=== PATIENT | male | born 1940 | race Caucasian/White ===

== ENCOUNTER → 2017-06-06 | Outpatient (CLI) | payer MEDICARE ==
[~2017-06-06] MED LIST: ACID REFLUX MED; ALLO-1 PO; AMOX-355 PO; BENA20TA62 PO; CEP500 PO; CLO5 PO; ENAL20TA99 PO; ESCI20TA8 PO; ESOM40CA42 PO; GLUC750T10 PO; IOPAMIDOL 76% 75 ML INFUS BTL 75 ML ONE; KET10 PO; LEV75 PO; LOR5 PO; LYRICA; NS 0.9% 50 ML VIAL 50 ML ONE; OMEP-218 PO; OXYGEN INH; PER PO; TAMS0.4C76 PO; TEST100V2 IM; TUM500 PO
--- NOTE | 2017-06-06 15:31 | RADIOLOGY IMAGING REPORT ---
FACILITY: [facility] [place] PATIENT NAME: Tito Ryder : 1940 MR: [id number] V: [id number] EXAM DATE: ORDERING PHYSICIAN: RENETTA MCGOVERN TECHNOLOGIST: Location: [facility] Patient: Tito Ryder : 1940 Visit/Account:[id number] Date of Sevice: 06/06/2017 ABDOMEN/PELVIS W/WO CONTRAST HISTORY: Pain with hematuria TECHNIQUE: Axial images acquired through the abdomen/pelvis both with and without IV contrast.. Katheryn nal and sagittal reformatting also performed. Dose Lowering Technique One of the following dose optimization techniques was utilized in the performance of this exam: Autom ated exposure control; adjustment of the mA and/or kV according to the patient's size; or use of an i terative reconstruction technique. Specific details can be referenced in the facility's radiology C T exam operational policy. CONTRAST: 75 mL Isovue-370 COMPARISON: None. FINDINGS: Visualized lung bases: Negative. Hepatobiliary: There are postsurgical changes from a cholecystectomy with prominence of the common b ile duct measuring up to 1.2 cm Spleen: Negative. Adrenals: Negative. Pancreas: Negative. Kidneys ureters and bladder: There is mild perinephric stranding bilaterally. There is no evidence o f hydronephrosis or hydroureter. The urinary bladder wall is moderately thickened. Genitalia: Prostate gland is markedly enlarged, extremely heterogeneous and impinges upon the floor the urinary bladder. Seminal vesicles are also very prominent GI: There is focal thickening in the mid ascending colon which is best seen on axial image 73 and co danielle image 29 Vessels/spaces/nodes: There are infiltrative changes seen throughout the central mesenteric fat whic h could be related to mesenteric edema. No bowel wall thickening however is identified and the mesen teric vessels appear well opacified with contrast. There are several enlarged mesenteric lymph nodes . A containers sales representative lymph node measures 1.5 x 1.2 x 1.7 cm Bones/soft tissues: Mild to moderate spondylotic changes of the thoracolumbar spine Additional findings: None pertinent. IMPRESSION: There is mild perinephric stranding bilaterally however no evidence of hydronephrosis or hydroureter. The bladder wall is moderately thickened which may be related to chronic bladder outlet obstruction a s the prostate gland is markedly enlarged, extremely heterogeneous and impinges upon the floor the ur inary bladder. Seminal vesicles are also prominent. There is focal thickening of the mid descending colon as described above. Although this could repres ent an area of spasm and annular lesion cannot be totally ruled out. There are infiltrative changes seen throughout the central mesenteric fat which could be related to m esenteric edema. There is however no bowel wall thickening in the mesenteric vessels appear well opa cified with contrast. There are however several enlarged mesenteric lymph nodes as described above Additional incidental findings as described Report Dictated By: Noy Castro MD at 06/06/2017 3:14 PM Report E-Signed By: Noy Castro MD at 06/06/2017 3:27 PM EVAN:AMILITOVWily
== END ==
LOC: CT 01:30
PROVIDERS: ATTEND Family Medicine
DX: N40.0 Benign prostatic hyperplasia without lower urinary tract symptoms (principal); Z90.49 Acquired absence of other specified parts of digestive tract
CPT/HCPCS: 36415; 74178; 82565; 84520; J7050; Q9967

== ENCOUNTER → 2017-06-12 | Outpatient (CLI) | payer MEDICARE ==
[~2017-06-12] MED LIST changes: -IOPAMIDOL 76% 75 ML INFUS BTL 75 ML ONE; -NS 0.9% 50 ML VIAL 50 ML ONE
== END ==
LOC: LAB 10:44
PROVIDERS: ATTEND Family Medicine
DX: R31.9 Hematuria, unspecified (principal)
CPT/HCPCS: 81001; 87088; 88108

== ENCOUNTER → 2017-08-11 | Outpatient (REF) | payer MEDICARE | LOC: ZZSENDIN 11:00 | PROVIDERS: ATTEND Urology | DX: R31.0 Gross hematuria (principal) | CPT/HCPCS: 88108 ==

== ENCOUNTER → 2017-08-25 | Outpatient (CLI) | payer MEDICARE ==
--- NOTE | 2017-08-25 16:22 | RADIOLOGY IMAGING REPORT ---
FACILITY: [facility] PATIENT NAME: Tito Ryder : 1940 MR: [id number] V: [id number] EXAM DATE: ORDERING PHYSICIAN: RENETTA MCGOVERN TECHNOLOGIST: Location: [facility] [place] Patient: Tito Ryder : 1940 Visit/Account:[id number] Date of Sevice: 08/25/2017 Ultrasound of the Abdominal Wall. HISTORY: Concern for right abdominal wall mass or hernia. COMPARISON: None. FINDINGS: The right upper quadrant anterior abdominal wall was assessed with a high frequency linear transducer . No abdominal wall mass, fluid collection, or edema is seen. No abdominal wall defect is observed at rest or during Valsalva maneuver. IMPRESSION: Negative study for right upper quadrant abdominal wall mass or hernia. Report Dictated By: Taylor Morfin MD at 08/25/2017 4:15 PM Report E-Signed By: Taylor Morfin MD at 08/25/2017 4:18 PM WSN:[email or web address]
== END ==
LOC: US 10:36
PROVIDERS: ATTEND Family Medicine
DX: R19.00 Intra-abdominal and pelvic swelling, mass and lump, unspecified site (principal)
CPT/HCPCS: 76705

== ENCOUNTER 2017-11-20 10:53 | Outpatient (RCR) | payer MEDICARE ==
[2017-09-01 13:55] VITALS: BP 149/80
[2017-09-01 15:00] LABS: PLATELET COUNT, AUTOMATED 173 K/uL (150-450)
--- NOTE | 2017-09-02 16:27 | ONCOLOGY CONSULTATION ---
EVENT DATE: September 01, 2017 REFERRING PHYSICIAN Rebeca Patel MD REASON FOR CONSULTATION Evaluation and management of erythrocytosis. HISTORY OF PRESENT ILLNESS Patient is a 77-year-old male who was on androgen supplementation for over 10 years for hypogonadism. Patient donates his blood nearly every three months. He had blood work done on August 03, 2017, which showed a white count of 6000, hemoglobin 19.8, hematocrit 58.5 and platelet count 175,000. Patient has some night sweats occasionally, but denies any other constitutional symptoms. PAST MEDICAL HISTORY 1. Depression. 2. Sinusitis. 3. Hypertension. 4. Hypothyroidism. 5. Hypogonadism. 6. Gout. PAST SURGICAL HISTORY 1. Cholecystectomy. 2. Sinus surgery. 3. Nerve release of the forearm surgery. FAMILY HISTORY Mother had breast cancer. Father had non-Hodgkin's lymphoma. Sister had non- Hodgkin's lymphoma. SOCIAL HISTORY Patient is with two daughters. He is a retired medical office administrator. He drinks on a daily basis wine, beer, hard liquor sometimes. Denies any abuse of tobacco or illicit drugs. CURRENT MEDICATIONS 1. Zantac 150 mg daily. 2. Aleve 220 mg at bedtime. 3. Losartan/hydrochlorothiazide 50/12.5 mg one tablet daily. 4. Colestipol hydrochloride 1 g daily. 5. Escitalopram oxalate 20 mg daily. 6. Synthroid 137 mcg daily. 7. Allopurinol 300 mg daily. 8. Testosterone 100 m/mL vial intramuscularly every two weeks. 9. Lotensin 20 mg daily. ALLERGIES No known drug allergies. REVIEW OF SYSTEMS CONSTITUTIONAL: No appetite or weight change. No fever, chills. He has occasional sweating. No recent infection. HEENT: Ears: No tinnitus or hearing problem. Nose: No nasal discharge or epistaxis. Throat: No sore throat or mouth ulcers. Eyes: No diplopia or visual changes. RESPIRATORY: No shortness of breath. No cough, expectoration or hemoptysis. CARDIOVASCULAR: No chest pain, orthopnea, or paroxysmal nocturnal dyspnea (PND) . No edema. No palpitations. GASTROINTESTINAL: Patient had occasional diarrhea after his gallbladder surgery. No vomiting. No constipation. No heartburn or swallowing difficulties. No abdominal pain. No jaundice. No hematemesis, melena or rectal bleeding. GENITOURINARY: No hematuria or dysuria. MUSCULOSKELETAL: He has arthritis of the spine and fingers. NEUROLOGICAL: No tingling or numbness in the hands or feet. No headaches or convulsions. HEMATOLOGIC/LYMPHATIC: No bleeding. He bruises easily. No weakness or fatigue. No enlarged lymph nodes. SKIN: No skin rash or lumps. PSYCHIATRIC: No anxiety or depression. PHYSICAL EXAMINATION GENERAL: Looks stable. Well-developed, well-nourished, and in no acute distress. VITAL SIGNS: Blood pressure 149/80, pulse 72 per minute, respirations 16 per minute, temperature 97.5, pulse ox 96% on room air. HEENT: Head: Atraumatic. No sinus tenderness to palpation. Eyes: No icterus or conjunctivitis. Mouth and throat: No oral thrush or mucositis. NECK: Supple. No cervical or supraclavicular lymphadenopathy. LUNGS: Clear to auscultation and percussion bilaterally. HEART: Regular rate and rhythm. No gallops, murmurs, clicks or rubs. ABDOMEN: Soft and lax. No tenderness. No hepatosplenomegaly. No masses. EXTREMITIES: No cyanosis, clubbing or edema. LYMPHATICS: No peripheral lymphadenopathy. NEUROLOGICAL: Conscious, alert and oriented times three. No focal motor or sensory deficits. PSYCHIATRIC: Mood and affect appear normal. SKIN: No skin rash, bruise or purpuric eruption. ASSESSMENT 1. Erythrocytosis, most probably secondary initially due to his testosterone supplementation, but primary polycythemia vera cannot be ruled out, and for this reason I am planning to check his CBC today. I am planning also to check his JAK2 mutation analysis which will be positive in 95% of cases of polycythemia vera, but negative in secondary causes. I will check also his erythropoietin level which will be low in polycythemia vera and normal and high in secondary causes of erythrocytosis. My target for phlebotomy will be different if it is due to polycythemia vera. The target will be hematocrit above 45%, while if it is secondary cause for erythrocytosis, then the target for phlebotomy, if the hematocrit above 55%. I am planning to see the patient in a week from now to discuss the results and for further management. 2. Hypogonadism on testosterone supplement. 3. Hypothyroidism on Synthroid. 4. Hypertension on treatment. 5. Gout on treatment. 6. Depression on treatment. PLAN 1. CBC. 2. JAK2 mutation analysis. 3. Erythropoietin level. 4. Patient to return in one week for further evaluation and management. 5. Consider phlebotomy if hematocrit above 45% in polycythemia vera, or above 55% in secondary causes of erythrocytosis. 6. Patient to contact us for any new concerns or complaints. MTDD
[2017-09-15 09:02] VITALS: BP 142/84
[2017-09-15 09:55] VITALS: BP 136/93
--- NOTE | 2017-09-15 17:30 | ONCOLOGY FOLLOW UP NOTE ---
EVENT DATE: September 15, 2017 DIAGNOSES 1. Secondary erythrocytosis. 2. Hypogonadism on testosterone supplement. 3. Hypothyroidism. 4. Hypertension. 5. Gout. 6. Depression. CHIEF COMPLAINT Patient is here today for followup of his erythrocytosis. HEMATOLOGY HISTORY Patient is a 77-year-old male who was on androgen supplementation for over 10 years for hypogonadism. Patient donates his blood nearly every three months. He had blood work done August 03, 2017 which showed a white count of 6000, hemoglobin 19.8, hematocrit 58.5 and the platelet count 175,000. He has some night sweating, but denies any other constitutional symptoms. Repeat CBC on September 01, 2017 showed white count 7.9, hemoglobin 20.3, hematocrit 58.8, platelets 173,000. Erythropoietin level was normal at 15, while JAK2 mutation for V617F mutation and Exon 12 mutation both came back negative, suggesting the diagnosis of secondary erythrocytosis as the underlying cause, which is most probably due to his testosterone supplementation. HISTORY OF PRESENT ILLNESS Patient is here today for followup of his erythrocytosis. He is totally asymptomatic currently. His last phlebotomy was about two months ago. PAST MEDICAL HISTORY 1. Depression. 2. Sinusitis. 3. Hypertension. 4. Hypothyroidism. 5. Hypogonadism. 6. Gout. PAST SURGICAL HISTORY 1. Cholecystectomy. 2. Sinus surgery. 3. Nerve release of the forearm surgery. FAMILY HISTORY Mother had breast cancer. Father had non-Hodgkin's lymphoma. Sister had non- Hodgkin's lymphoma. SOCIAL HISTORY Patient is with two daughters. He is a retired medical logistics specialist. He drinks on a daily basis wine, beer, hard liquor sometimes. Denies any abuse of tobacco or illicit drugs. CURRENT MEDICATIONS 1. Zantac 150 mg daily. 2. Aleve 220 mg at bedtime. 3. Losartan/hydrochlorothiazide 50/12.5 mg one tablet daily. 4. Colestipol hydrochloride 1 g daily. 5. Escitalopram oxalate 20 mg daily. 6. Synthroid 137 mcg daily. 7. Allopurinol 300 mg daily. 8. Testosterone 100 m/mL vial intramuscularly every two weeks. 9. Lotensin 20 mg daily. ALLERGIES No known drug allergies. REVIEW OF SYSTEMS CONSTITUTIONAL: No appetite or weight change. No fever, chills. He has occasional sweating. No recent infection. HEENT: Ears: No tinnitus or hearing problem. Nose: No nasal discharge or epistaxis. Throat: No sore throat or mouth ulcers. Eyes: No diplopia or visual changes. RESPIRATORY: No shortness of breath. No cough, expectoration or hemoptysis. CARDIOVASCULAR: No chest pain, orthopnea, or paroxysmal nocturnal dyspnea (PND) . No edema. No palpitations. GASTROINTESTINAL: Patient had occasional diarrhea after his gallbladder surgery. No vomiting. No constipation. No heartburn or swallowing difficulties. No abdominal pain. No jaundice. No hematemesis, melena or rectal bleeding. GENITOURINARY: No hematuria or dysuria. MUSCULOSKELETAL: He has arthritis of the spine and fingers. NEUROLOGICAL: No tingling or numbness in the hands or feet. No headaches or convulsions. HEMATOLOGIC/LYMPHATIC: No bleeding. He bruises easily. No weakness or fatigue. No enlarged lymph nodes. SKIN: No skin rash or lumps. PSYCHIATRIC: No anxiety or depression. PHYSICAL EXAMINATION GENERAL: Looks stable. Well-developed, well-nourished, and in no acute distress. VITAL SIGNS: Blood pressure 142/84, pulse 76 per minute, respirations 16 per minute, temperature 97.6, pulse ox 94% on room air. HEENT: Head: Atraumatic. No sinus tenderness to palpation. Eyes: No icterus or conjunctivitis. Mouth and throat: No oral thrush or mucositis. NECK: Supple. No cervical or supraclavicular lymphadenopathy. LUNGS: Clear to auscultation and percussion bilaterally. HEART: Regular rate and rhythm. No gallops, murmurs, clicks or rubs. ABDOMEN: Soft and lax. No tenderness. No hepatosplenomegaly. No masses. EXTREMITIES: No cyanosis, clubbing or edema. LYMPHATICS: No peripheral lymphadenopathy. NEUROLOGICAL: Conscious, alert and oriented times three. No focal motor or sensory deficits. PSYCHIATRIC: Mood and affect appear normal. SKIN: No skin rash, bruise or purpuric eruption. DIAGNOSTIC DATA CBC showed white count 7.9, hemoglobin 20.3, hematocrit 58.8, platelets 173, 000. JAK2 mutation for V617F mutation and Exon 12 mutation came back negative. Erythropoietin level is normal at 15. ASSESSMENT 1. Secondary erythrocytosis, given that the patient has negative JAK2 mutation for V617F mutation and Exon 12 mutation, and the erythropoietin level was normal at 15. Androgen supplementation most probably is the underlying cause for his erythrocytosis, and because the patient cannot get rid of it, I am planning to do phlebotomy whenever his hematocrit is above 55%. I am planning to check his CBC today and if the hematocrit is above 55% I am planning to proceed with phlebotomy today. I will check his CBC every month and I will see him in two months from now with another CBC, and whenever the hematocrit is above 55% we will do a phlebotomy. Patient is aware of that. 2. Hypogonadism on testosterone supplement. 3. Hypothyroidism on Synthroid. 4. Hypertension on treatment. 5. Gout on treatment. 6. Depression on treatment. PLAN 1. Check CBC today. 2. Phlebotomize 500 mL blood if the hematocrit is above 55%. 3. CBC to be checked monthly. 4. Patient to return in two months with CBC. 5. Patient to contact us for any new concerns or complaints. KATTY
[2017-10-20 09:07] VITALS: BP 121/78
[2017-10-20 09:18] LABS: PLATELET COUNT, AUTOMATED 164 K/uL (150-450)
[2017-10-20 09:47] VITALS: BP 120/79
[2017-11-13 13:05] VITALS: BP 131/74
[2017-11-13 13:27] LABS: PLATELET COUNT, AUTOMATED 178 K/uL (150-450)
[2017-11-16 10:01] VITALS: BP 126/74
--- NOTE | 2017-11-16 15:07 | ONCOLOGY FOLLOW UP NOTE ---
EVENT DATE: November 16, 2017 DIAGNOSES 1. Secondary erythrocytosis. 2. Hypogonadism on testosterone supplement. 3. Hypothyroidism. 4. Hypertension. 5. Gout. 6. Depression. CHIEF COMPLAINT Patient is here today for followup of his secondary erythrocytosis. HEMATOLOGY HISTORY Patient is a 77-year-old male who was on androgen supplementation for over 10 years for hypogonadism. Patient donates his blood nearly every three months. He had blood work done August 03, 2017 which showed a white count of 6000, hemoglobin 19.8, hematocrit 58.5 and the platelet count 175,000. He has some night sweating, but denies any other constitutional symptoms. Repeat CBC on September 01, 2017 showed white count 7.9, hemoglobin 20.3, hematocrit 58.8, platelets 173,000. Erythropoietin level was normal at 15, while JAK2 mutation for V617F mutation and Exon 12 mutation both came back negative, suggesting the diagnosis of secondary erythrocytosis as the underlying cause, which is most probably due to his testosterone supplementation. HISTORY OF PRESENT ILLNESS Patient is here today for followup of his secondary erythrocytosis. He is complaining of shortness of breath because of the smoke currently, but other than that he is really totally asymptomatic. PAST MEDICAL HISTORY 1. Depression. 2. Sinusitis. 3. Hypertension. 4. Hypothyroidism. 5. Hypogonadism. 6. Gout. PAST SURGICAL HISTORY 1. Cholecystectomy. 2. Sinus surgery. 3. Nerve release of the forearm surgery. FAMILY HISTORY Mother had breast cancer. Father had non-Hodgkin's lymphoma. Sister had non- Hodgkin's lymphoma. SOCIAL HISTORY Patient is with two daughters. He is a retired medical device sales representative. He drinks on a daily basis wine, beer, hard liquor sometimes. Denies any abuse of tobacco or illicit drugs. CURRENT MEDICATIONS 1. Zantac 150 mg daily. 2. Aleve 220 mg at bedtime. 3. Losartan/hydrochlorothiazide 50/12.5 mg one tablet daily. 4. Colestipol hydrochloride 1 g daily. 5. Escitalopram oxalate 20 mg daily. 6. Synthroid 137 mcg daily. 7. Allopurinol 300 mg daily. 8. Testosterone 100 m/mL vial intramuscularly every two weeks. 9. Lotensin 20 mg daily. ALLERGIES No known drug allergies. REVIEW OF SYSTEMS CONSTITUTIONAL: No appetite or weight change. No fever, chills. He has occasional sweating. No recent infection. HEENT: Ears: No tinnitus or hearing problem. Nose: No nasal discharge or epistaxis. Throat: No sore throat or mouth ulcers. Eyes: No diplopia or visual changes. RESPIRATORY: He has some shortness of breath because of smoke. No cough, expectoration or hemoptysis. CARDIOVASCULAR: No chest pain, orthopnea, or paroxysmal nocturnal dyspnea (PND) . No edema. No palpitations. GASTROINTESTINAL: Patient had occasional diarrhea after his gallbladder surgery. No vomiting. No constipation. No heartburn or swallowing difficulties. No abdominal pain. No jaundice. No hematemesis, melena or rectal bleeding. GENITOURINARY: No hematuria or dysuria. MUSCULOSKELETAL: He has arthritis of the spine and fingers. NEUROLOGICAL: No tingling or numbness in the hands or feet. No headaches or convulsions. HEMATOLOGIC/LYMPHATIC: No bleeding. He bruises easily. No weakness or fatigue. No enlarged lymph nodes. SKIN: No skin rash or lumps. PSYCHIATRIC: No anxiety or depression. PHYSICAL EXAMINATION GENERAL: Looks stable. Well-developed, well-nourished, and in no acute distress. VITAL SIGNS: Blood pressure 126/74, pulse 58 per minute, respirations 16 per minute, temperature 99.3, pulse ox 95% on room air. HEENT: Head: Atraumatic. No sinus tenderness to palpation. Eyes: No icterus or conjunctivitis. Mouth and throat: No oral thrush or mucositis. NECK: Supple. No cervical or supraclavicular lymphadenopathy. LUNGS: Clear to auscultation and percussion bilaterally. HEART: Regular rate and rhythm. No gallops, murmurs, clicks or rubs. ABDOMEN: Soft and lax. No tenderness. No hepatosplenomegaly. No masses. EXTREMITIES: No cyanosis, clubbing or edema. LYMPHATICS: No peripheral lymphadenopathy. NEUROLOGICAL: Conscious, alert and oriented times three. No focal motor or sensory deficits. PSYCHIATRIC: Mood and affect appear normal. SKIN: No skin rash, bruise or purpuric eruption. DIAGNOSTIC DATA CBC showed white count 8000, hemoglobin 18.9, hematocrit 55.5, platelets 178, 000. ASSESSMENT 1. Secondary erythrocytosis, given that the patient has negative JAK2 mutation for V617F mutation and Exon 12 mutation, and his erythropoietin level was normal at 15. Androgen supplementation most probably is the underlying cause for his erythrocytosis, and because the patient cannot get rid of it, I am planning to do phlebotomy whenever the hematocrit is above 55%. His current CBC shows hematocrit of 55.5% and I am planning to proceed with phlebotomy at this time. I will check his CBC every month and I will see him in three months with CBC at that time. 2. Hypogonadism on testosterone supplement. 3. Hypothyroidism on Synthroid. 4. Hypertension on treatment. 5. Gout on treatment. 6. Depression on treatment. PLAN 1. Phlebotomize 500 mL blood if the hematocrit is above 55%. 2. CBC to be checked monthly. 3. Patient to return in three months with CBC. 4. Patient to contact us for any new concerns or complaints. KATTY
[~2017-11-20 10:53] MED LIST changes: +COLE1TAB6 PO; +LOSA-51 PO; +NAPR220C12 PO; +RANI-366 PO
== END 2017-11-29 ==
LOC: SPU 10:53
PROVIDERS: ATTEND Internal Medicine Hematology
DX: D75.1 Secondary polycythemia (principal); E29.1 Testicular hypofunction; I10 Essential (primary) hypertension; E03.9 Hypothyroidism, unspecified; M10.9 Gout, unspecified; F32.9 Major depressive disorder, single episode, unspecified; R89.8 Other abnormal findings in specimens from other organs, systems and tissues
CPT/HCPCS: 36415; 81270; 82668; 85014; 85018; 85025; 85027; 99195; G0463; 81403; 99202; 99212

== ENCOUNTER 2018-02-02 09:50 | Outpatient (RCR) | payer MEDICARE ==
[2017-12-18 09:07] VITALS: BP 141/85
[2017-12-18 09:10] LABS: PLATELET COUNT, AUTOMATED 208 K/uL (150-450)
--- NOTE | 2017-12-18 09:14 | Oncology Progress Note ---
History of Present Illness Evaluation Evaluation Date: Dec 18, 2017 Evaluation Time: 10:10 Primary Care Provider Primary Care Provider: Amanda Jose DO Accompanied by Accompanied by: Self Last seen by : Ghulam 11/16/17 Chief Complaint Chief Complaint f/u management of Secondary Erythrocytosis Oncology History Oncology History HEMATOLOGY HISTORY Patient is a 77-year-old male who was on androgen supplementation for over 10 years for hypogonadism. Patient donates his blood nearly every three months. He had blood work done August 03, 2017 which showed a white count of 6000, hemoglobin 19.8, hematocrit 58.5 and the platelet count 175,000. He has some night sweating, but denies any other constitutional symptoms. Repeat CBC on September 01, 2017 showed white count 7.9, hemoglobin 20.3, hematocrit 58.8, platelets 173,000. Erythropoietin level was normal at 15, while JAK2 mutation for V617F mutation and Exon 12 mutation both came back negative, suggesting the diagnosis of secondary erythrocytosis as the underlying cause, which is most probably due to his testosterone supplementation. Treatment Treatment Therapeutic Phlebotomy HPI HPI Mr. 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 Patient provides therapeutic blood donation nearly every three months.patient was on androgen supplementation for over 10 years for hypogonadism. He had blood work done on August 03, 2017, which showed a white count of 6000, hemoglobin 19.8, hematocrit 58.5 and platelet count 175,000. Patient has some night sweats occasionally, but denies any other constitutional symptoms. Significant PMH of Depression. Sinusitis. Hypertension. Hypothyroidism. Hypogonadism. Gout. Patient present to cancer center today for blood work and therapeutic phlebotomy. Reports being in his usual state of health. reports No issues or complains, he reports seeing his PCP recently and frequently. Patient is AAOX4, and hemodynamically stable.He reports no changes in bowel, bladder pattern, nor changes in food hydration intake. He is on the go and pretty active.. Social/Occupational History Social History: Social History This is a 77 Yr old White male, he is M and has [] Children Hx Smoking: No Allergies & Medications Allergies: Coded Allergies: No Known Allergies (Verified Allergy, Mild, 03/12/17) Home Meds Reported Medications Ranitidine Hcl (ZANTAC) 150 Mg Tablet, 150 MG PO, TAB 09/01/17 Naproxen Sodium (ALEVE) 220 Mg Capsule, 220 MG PO HS, CAPSULE 09/01/17 Losartan/Hydrochlorothiazide (LOSARTAN-HCTZ 50-12.5 MG TAB) 1 Each Tablet, 1 EACH PO QDAY 09/01/17 Colestipol Hcl (COLESTIPOL HCL) 1 Gm Tablet, 1 GM PO DAILY 09/01/17 Escitalopram Oxalate (ESCITALOPRAM OXALATE) 20 Mg Tablet, 20 MG PO QDAY 03/12/17 Levothyroxine Sodium (Synthroid/Levothroid) 0.075 Mg Tab, 0.137 MG PO QDAY, 0 Refills 12/15/10 Allopurinol (Allopurinol) 300 Mg Tablet, 300 MG PO DAILY, 0 Refills 12/15/10 Testosterone (Tesamone-100) 100 Mg/Ml Vial, 0.75 ML IM [id number] 12/15/10 Review of Systems Constitution: Denies Appetite/Weight Change, Denies Fever/Chills/Sweating, Denies Recent Infection, Denies Other HEENT: No EARS: Tinnitus, No NOSE: Nasal Discharge, No THROAT: Sore Throat, No EYES: Dipolpia, No EARS: Hearing Problems, No NOSE: Epistaxis, No THROAT: Mouth Ulcers, No EYES: Vision Change, No OTHER Respiratory: No Cough, No Expectoration, No Hemoptysis, No Shortness of Breath , No OTHER Cardiovascular: No Chest Pain, No Orthopnea, No Edema, No Palpitations, No OTHER Musculoskeletal: No Muscle Pain, No Joint Pain, No Bone Pain, No Other Hematological: No Bleeding, No Weakness, No Enlarged Lyph Nodes, No Bruising, No Fatigue, No Other Psychiatric: No Anxiety, No Depression, No Other Vital Signs Vital Signs Temperature: 98.3 Pulse: 58 BP Systolic: 141 BP Diastolic: 85 Respiratory Rate: 16 O2 SAT: 95 O2 Delivery: Height (feet) Height (inches) Weight lb: 214 Weight oz: Weight Kg (Connor): Pain: 0 ECOG-1 Physical Exam General: Looks Stable, Well Developed, Well Nourished HEENT: HEAD:Atraumatic, No EYES: Conjuctivitis, No EYES: Icterus, No MOUTH: Mucocitis, No MOUTH: Oral Thrush, No SINUS: Tenderness to Palpation, No Other Neck: Supple, No Cervical Lymphadenopathy, No Subclavicular Lymphadopathy, No Thyromegaly, No Other Lungs: Clear to Auscultation, Percussion Bilaterally Heart: Regular Rate and Rhythm, No Gallops, No Murmurs, No Clicks, No Rubs, No Other Abdomen: No Soft and Nontender, No Hepatosplenomegaly, No Masses, No Other Extremities: No Cyanosis, No Clubbing, No Edema, No Other Lymphatics: No Peripheral Lymphadenopathy, No Other Psychiatric: No Mood appears normal, No Affect appears normal, No Other Skin: No Skin Rashes, No Bruising, No Purpura, No Moist Desquamation, No Dry Desquamation, No Errythema, No Mild Errythema, No Moderate Errythema, No Severe Errythema, No Induration, No Other Breast: No No Masses, No No Nipple Discharge, No No Skin Changes, No Other Assessment and Plan Assessment and Plan Mr. 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 Patient provides therapeutic blood donation nearly every three months.patient was on androgen supplementation for over 10 years for hypogonadism. Patient used to work as a [employer]. He reports some night sweats occasionally, but denies any other constitutional symptoms. Patient is AAOX4, and hemodynamically stable. He reports no changes in bowel, bladder pattern, nor changes in food hydration intake. He is on the go and pretty active. Significant PMH of Depression. Sinusitis. Hypertension. Hypothyroidism. Hypogonadism. Gout. DIAGNOSTIC DATA CBC on 12/18/17 showed white count 6.6, hemoglobin 19.5, hematocrit 56.9, platelets 208K;ANC3.9; Chem Panel last done reveals BUN 24; Creatinine 1.00; T. Bili 2.5 ASSESSMENT 1. Secondary erythrocytosis, given that the patient has negative JAK2 mutation for V617F mutation and Exon 12 mutation, and his erythropoietin level was normal at 15. Androgen supplementation most probably is the underlying cause for his erythrocytosis, and because the patient cannot get rid of it, plan is continue to do phlebotomy whenever the hematocrit is above 55%. His current CBC shows hematocrit of 56.9% an planning to proceed with phlebotomy at this time. We will check his CBC every month with follow up visits in three months with CBC,CMP at that time. 2. Hypogonadism on testosterone supplement. 3. Hypothyroidism on Synthroid. 4. Hypertension on treatment. 5. Gout on treatment. 6. Depression on treatment 7. Asymptomatic Hyperbilirubinemia. T. Bili 03/2017 is 2.5. sclera anicterus, non jaundice skin, asymptomatic, will continue to monitor counts closely. please add CMP, LFTs, Direct and indirect Bili to next month labs. PLAN 1. Phlebotomize 500 mL blood for a hematocrit of 56.9 today 2. CBC to be checked monthly. please add CMP, LFTs, Direct and indirect Bili with next month lab draw. 3. Patient to return in three months too see MD/PRASAD with CBC. 4. Phlebotomize for a Hct >55% 5. Patient to contact us for any new concerns or complaints. -Education, patient instructed to go to ER immediately and or call Clinic if any Shortness of Breath, Temp >/=100.4, fevers, chills, cardiac type chest pain , bleeding, excessive bruising, headaches, blurry vision, dizziness, abdominal pain, difficulty swallowing, and pain unrelieved by medication. TIME SPENT: 20 minutes 15 > minutes includes but not limited to discussion, counselling and co-ordination~ of care. Discussion with other health care providers, record review, review of lab work, diagnostic tests. Plan discussed extensively with patient. All the questions answered today. Thank you for the opportunity to be involved in the care of Mr. Aleksey Francis. Billing Level: Return visit 3 ABDIRASHID GARCIA, ONC Dec 18, 2017 09:14
[2018-01-15 09:08] LABS: PLATELET COUNT, AUTOMATED 196 K/uL (150-450)
[2018-02-02 10:09] LABS: PLATELET COUNT, AUTOMATED 209 K/uL (150-450)
[2018-02-02 11:00] VITALS: BP 115/77
== END 2018-03-15 ==
LOC: SPU 09:50
PROVIDERS: ATTEND Internal Medicine Hematology
DX: D75.1 Secondary polycythemia (principal); E29.1 Testicular hypofunction; I10 Essential (primary) hypertension; E03.9 Hypothyroidism, unspecified; M10.9 Gout, unspecified; F32.9 Major depressive disorder, single episode, unspecified
CPT/HCPCS: 82040; 82247; 82248; 82310; 82374; 82435; 82565; 82947; 84075; 84132; 84155; 84295; 84450; 84460; 84520; 85025; 99195

== ENCOUNTER 2018-03-29 10:43 | Outpatient (RCR) | payer MEDICARE ==
[2018-03-19 13:09] VITALS: BP 131/62
[2018-03-19 13:17] LABS: PLATELET COUNT, AUTOMATED 220 K/uL (150-450)
[2018-03-29 11:06] LABS: PLATELET COUNT, AUTOMATED 192 K/uL (150-450)
== END 2018-05-02 11:53 | disposition home or self-care (01) ==
LOC: SPU 10:43
PROVIDERS: ATTEND Internal Medicine Hematology
DX: R89.9 Unspecified abnormal finding in specimens from other organs, systems and tissues (principal); D75.1 Secondary polycythemia
CPT/HCPCS: 36415; 85025; 99195

== ENCOUNTER → 2018-05-18 | Outpatient (CLI) | payer MEDICARE ==
--- NOTE | 2018-05-18 09:29 | RADIOLOGY IMAGING REPORT ---
FACILITY: [facility] - [place] PATIENT NAME: Tito Ryder : 1940 MR: [id number] V: [id number] EXAM DATE: ORDERING PHYSICIAN: RENETTA MCGOVERN TECHNOLOGIST: Location: [facility] - [place] Patient: Tito Ryder : 1940 Visit/Account:[id number] Date of Sevice: 05/18/2018 CHEST PA AND LAT Additional pertinent History: Abnormal lung [place]. COMPARISON STUDIES: 03/12/2017 FINDINGS: Support lines and catheters: None Lungs and Pleura: Lung [place] well expanded with no infiltrates or consolidations. No parenchymal ma ss lesions are seen. There are no effusions Heart and vasculature: Negative. Na and Mediastinum: Negative. Bones and Chest wall: Negative. Upper Abdomen: Negative. IMPRESSION: 1. Negative chest. No interval change when compared to previous study. Report Dictated By: Kedar Warner MD at 05/18/2018 9:22 AM Report E-Signed By: Kedar Warner MD at 05/18/2018 9:24 AM WSN:[id number]
== END ==
LOC: RAD 08:55
PROVIDERS: ATTEND Family Medicine
DX: R91.8 Other nonspecific abnormal finding of lung field (principal)
CPT/HCPCS: 71046

== ENCOUNTER 2018-06-06 16:01 | Outpatient (RCR) | payer MEDICARE ==
[2018-06-07 08:20] VITALS: BP 142/85
[2018-06-07 08:40] LABS: PLATELET COUNT, AUTOMATED 182 K/uL (150-450)
[2018-06-07 09:04] VITALS: BP 151/94
== END 2018-07-04 09:27 | disposition home or self-care (01) ==
LOC: SPU 16:01
PROVIDERS: ATTEND Internal Medicine Hematology
DX: R89.9 Unspecified abnormal finding in specimens from other organs, systems and tissues (principal); D75.1 Secondary polycythemia
CPT/HCPCS: 85025; 99195

== ENCOUNTER → 2018-08-30 | Outpatient (CLI) | payer MEDICARE | LOC: SPU 09:05 | PROVIDERS: ATTEND Urology | DX: D75.1 Secondary polycythemia (principal); R97.20 Elevated prostate specific antigen [PSA] | CPT/HCPCS: 84153 ==

== ENCOUNTER 2018-10-25 09:05 | Outpatient (RCR) | payer MEDICARE ==
[2018-08-02 10:59] VITALS: BP 168/92
[2018-08-02 11:14] LABS: PLATELET COUNT, AUTOMATED 197 K/uL (150-450)
[2018-08-30 08:58] VITALS: BP 150/88
[2018-08-30 09:52] VITALS: BP 137/87
[2018-10-25 09:20] VITALS: BP 121/82
[2018-10-25 09:33] LABS: PLATELET COUNT, AUTOMATED 195 K/uL (150-450)
[2018-10-25 10:01] VITALS: BP 136/85
== END 2018-10-30 ==
LOC: SPU 09:05
PROVIDERS: ATTEND Internal Medicine Hematology
DX: D75.1 Secondary polycythemia (principal)
CPT/HCPCS: 36415; 85025; 85027; 99195